=== PATIENT | female | born 1975 | race Caucasian/White ===

== ENCOUNTER 2021-12-13 14:25 | Emergency (ER) | payer OTHER ==
[~2021-12-13] VITALS: Ht 180.3 cm; Wt 90.0 kg
[2021-12-13 14:53] VITALS: BP 142/89
== END 2021-12-13 20:50 | disposition left against medical advice (07) ==
LOC: ER 14:53
DX: Z53.21 Procedure and treatment not carried out due to patient leaving prior to being seen by health care provider (principal)

== ENCOUNTER 2023-03-06 12:21 | Emergency (ER) | payer OTHER ==
[~2023-03-06] VITALS: Ht 165.1 cm; Wt 65.0 kg
[2023-03-06 12:30] VITALS: BP 108/76; PULSE 66; RESP 16; TEMP 98.8; O2SAT 97
[2023-03-06 15:03] LABS: BASOPHILS % 0.4 % (0.0-2.0); EOSINOPHILS % 1.1 % (0.0-5.0); HEMATOCRIT. 39.5 % (36.0-48.0); HEMOGLOBIN. 13.3 g/dL (12.0-16.0); LYMPHOCYTES % 26.9 % (20.0-50.0); MEAN CORPUSCULAR HEMOGLOBIN 31.6 pg (28.0-32.0); MEAN CORPUSCULAR HGB CONC 33.7 g/dL (31.0-37.0); MEAN CORPUSCULAR VOLUME 93.8 fL (81.0-99.0); MEAN PLATELET VOLUME 7.3 fl (7.4-10.4); MONOCYTES % 6.3 % (2.0-8.0); NEUTROPHILS % 65.3 % (40.0-76.0); PLATELET 274 x1000/uL (130-400); RED BLOOD CELL COUNT 4.21 mill/uL (4.2-5.4); WHITE BLOOD COUNT 9.4 x1000/uL (4.5-11.0)
[2023-03-06 15:13] LABS: CHLORIDE 112 mEq/L (98-107); INDEX HEMOLYSI 1 (1-3); INDEX ICTERIC 1 (1-4); INDEX LIPEMIC 1 (1-3); POTASSIUM 3.6 mEq/L (3.5-5.1); SODIUM 140 mEq/L (136-145)
[2023-03-06 15:23] LABS: ALANINE AMINOTRANSFERASE 27 IU/L (13-61); ALBUMIN 3.4 g/dL (3.4-5.0); ASPARTATE AMINOTRANSFERASE 15 IU/L (15-37); BILIRUBIN TOTAL 0.4 mg/dL (0.1-1.0); CALCIUM 8.7 mg/dL (8.5-10.1); CARBON DIOXIDE 25 mEq/L (21-32); CREATININE 0.7 mg/dL (0.6-1.3); GLUCOSE 93 mg/dL (70-105); PROTEIN TOTAL 6.8 g/dL (6.0-8.3); TROPONIN I HIGH SENSITIVITY 15 ng/L (<54); UREA NITROGEN BLOOD 17 mg/dL (7-21)
[2023-03-06 15:30] LABS: HCG SCREEN NEGATIVE
[2023-03-06] MEDS ORDERED: ACETAMINOPHEN 325MG TABLET PO STA (17:57)
[2023-03-06] MEDS ORDERED: METOCLOPRAMIDE HCL 10MG/2ML VIAL IV ONE (18:00)
[2023-03-06] MEDS ORDERED: SODIUM CHLORIDE 0.9% 1,000 ML IV ONE (18:00)
[2023-03-06] MEDS ORDERED: ACETAMINOPHEN 325MG TABLET PO NR (22:45)
[2023-03-06] MEDS ORDERED: METOCLOPRAMIDE HCL 10MG/2ML VIAL IV NR (22:45)
== END 2023-03-07 01:32 | disposition home or self-care (01) ==
LOC: ER 12:40
DX: R53.1 Weakness (principal); I10 Essential (primary) hypertension; Z82.49 Family history of ischemic heart disease and other diseases of the circulatory system; Z90.710 Acquired absence of both cervix and uterus
CPT/HCPCS: 99285; 70496; 96374; 71045; 96361; 80053; 84703; 85025; 84484; 36415; 70498; 93005; 70450; Q9967; J2765; J7030

== ENCOUNTER 2024-04-06 19:20 | Inpatient (IN) | payer SELFPAY ==
[~2024-04-06] VITALS: Ht 180.3 cm; Wt 88.0 kg
[2024-04-06 19:47] VITALS: O2SAT 97
[2024-04-06 20:25] LABS: BASOPHILS % 0.5 % (0.0-2.0); EOSINOPHILS % 0.7 % (0.0-5.0); HEMATOCRIT. 42.6 % (36.0-48.0); HEMOGLOBIN. 14.4 g/dL (12.0-16.0); LYMPHOCYTES % 35.7 % (20.0-50.0); MEAN CORPUSCULAR HEMOGLOBIN 31.9 pg (28.0-32.0); MEAN CORPUSCULAR HGB CONC 33.7 g/dL (31.0-37.0); MEAN CORPUSCULAR VOLUME 94.5 fL (81.0-99.0); MONOCYTES % 7.4 % (2.0-8.0); NEUTROPHILS % 55.7 % (40.0-76.0); PLATELET 296 x1000/uL (130-400); RED CELL DISTRIBUTION WIDTH 13.6 % (11.6-14.6); WHITE BLOOD COUNT 7.5 x1000/uL (4.5-11.0)
[2024-04-06 20:30] LABS: CHLORIDE 107 mEq/L (98-107); POTASSIUM 3.8 mEq/L (3.5-5.1); SODIUM 140 mEq/L (136-145)
[2024-04-06 20:31] LABS: CALCIUM 9.7 mg/dL (8.7-10.4); CARBON DIOXIDE 27 mEq/L (21-32)
[2024-04-06 20:36] LABS: CREATININE 0.9 mg/dL (0.6-1.0); GLUCOSE 94 mg/dL (70-105); UREA NITROGEN BLOOD 20 mg/dL (9-23)
[2024-04-06 20:37] LABS: TROPONIN I HIGH SENSITIVITY 13 ng/L (3.0-34)
[2024-04-06 20:38] LABS: ALANINE AMINOTRANSFERASE 15 IU/L (10-49); ALBUMIN 4.7 g/dL (3.2-4.8); ASPARTATE AMINOTRANSFERASE 19 IU/L (<34); BILIRUBIN DIRECT 0.1 mg/dL (<=3.0); PROTHROMBIN TIME 11.4 sec (9.6-11.0)
[2024-04-06 20:39] LABS: BILIRUBIN TOTAL 0.5 mg/dL (0.1-1.0); PROTEIN TOTAL 7.5 g/dL (6.0-8.3)
[2024-04-06 20:50] LABS: HCG SCREEN NEGATIVE
[2024-04-06] MEDS: MAGNESIUM/ALUMINUM HYDROXIDE/SIMETHICONE 30ML UDC PO STA (21:12)
[2024-04-06] MEDS: ONDANSETRON 4MG ODT PO STA (21:12)
[2024-04-06] MEDS: ACETAMINOPHEN 325MG TABLET PO STA (21:13)
[2024-04-06 21:30] LABS: CLARITY URINE CLEAR (CLEAR); COLOR URINE YELLOW (YELLOW); GLUCOSE URINE NEGATIVE (NEGATIVE); KETONES URINE NEGATIVE (NEGATIVE); LEUKOCYTE ESTERASE URINE NEGATIVE (NEGATIVE); NITRITE URINE NEGATIVE (NEGATIVE); OCCULT BLOOD URINE NEGATIVE (NEGATIVE); PH URINE 5.5 (4.5-8.0); PROTEIN URINE NEGATIVE (NEGATIVE); SPECIFIC GRAVITY URINE 1.021 (1.005-1.030); UROBILINOGEN URINE 0.2 E.U./dL (0.2-1.0)
[2024-04-06 23:02] LABS: TROPONIN I HIGH SENSITIVITY 13 ng/L (3.0-34)
[2024-04-06] MEDS ORDERED: ACETAMINOPHEN 325MG TABLET PO PRN (23:30)
[2024-04-06] MEDS ORDERED: IPRATROPIUM/ALBUTEROL 0.5-3(2.5)MG/3ML NEB HHN PRN (23:30)
[2024-04-06] MEDS ORDERED: MAGNESIUM/ALUMINUM HYDROXIDE/SIMETHICONE 30ML UDC PO PRN (23:30)
[2024-04-06] MEDS ORDERED: DOCUSATE SODIUM 100MG CAPSULE PO PRN (23:30)
[2024-04-06] MEDS ORDERED: CLONIDINE 0.1MG TABLET PO PRN (23:30)
[2024-04-06] MEDS ORDERED: GUAIFENESIN 200MG/10ML SUGAR FREE UDC PO PRN (23:30)
[2024-04-07] MEDS ORDERED: IOHEXOL-300 100 ML BOTTLE ONE (00:52)
[2024-04-07 01:05] LABS: *AMPHETAMINES SCREEN URINE NEGATIVE (NEGATIVE); *BARBITURATES SCREEN URINE NEGATIVE (NEGATIVE); *BENZODIAZEPINES SCREEN URINE NEGATIVE (NEGATIVE); *COCAINE SCREEN URINE NEGATIVE (NEGATIVE); CANNABINOID URINE SCREEN NEGATIVE (NEGATIVE); ECSTASY MDMA SCREEN URINE NEGATIVE (NEGATIVE); METHADONE URINE SCREEN NEGATIVE (NEGATIVE); OPIATES URINE SCREEN NEGATIVE (NEGATIVE); PHENCYCLIDINE URINE SCREEN NEGATIVE (NEGATIVE)
[2024-04-07] MEDS: SODIUM CHLORIDE 0.9% 1,000 ML IV SCH (01:33)
[2024-04-07] MEDS: MORPHINE SULFATE 2 MG/ML INJ (NOT FOR IM USE) IV NR (01:39)
[2024-04-07 02:31] VITALS: BP 114/72; PULSE 65; RESP 18; TEMP 36.9184
[2024-04-07 08:00] VITALS: BP 110/76; PULSE 59; RESP 18; TEMP 36.28068; O2SAT 96
[2024-04-07 08:02] LABS: TRIGLYCERIDE 81 mg/dL (0-150)
[2024-04-07 08:03] LABS: LDL CHOLESTEROL 128 mg/dL (5-100)
[2024-04-07 08:04] LABS: CHOLESTEROL 207 mg/dL (<200); HDL CHOLESTEROL 55 mg/dL (>65)
[2024-04-07 08:05] LABS: PHOSPHORUS 3.1 mg/dL (2.5-4.9); T4 FREE 1.26 ng/dL (0.89-1.76)
[2024-04-07] MEDS: PANTOPRAZOLE SODIUM 40 MG/VIAL IV SCH (08:11)
[2024-04-07] MEDS: ACETAMINOPHEN 325MG TABLET PO PRN (08:13)
[2024-04-07 12:00] VITALS: BP 104/71; PULSE 65; RESP 19; TEMP 36.3918; O2SAT 97
[2024-04-07] MEDS ORDERED: IBUPROFEN 600MG TABLET PO PRN (13:05)
[2024-04-07] MEDS: TRAMADOL 50MG TABLET PO PRN (13:54)
[2024-04-07 16:00] VITALS: BP 102/66; PULSE 66; RESP 18; TEMP 36.72516; O2SAT 95
[2024-04-07 17:02] LABS: HEPATITIS B SURFACE ANTIGEN NEGATIVE (Negative)
[2024-04-07 17:22] LABS: HEPATITIS A AB IGM NEGATIVE (Negative)
[2024-04-07 17:23] LABS: HEPATITIS B CORE AB IGM NEGATIVE (Negative); HEPATITIS C AB NON REACTIVE (Neg) (Negative)
[2024-04-07 20:00] VITALS: BP 108/76; PULSE 63; PULSE 69; RESP 18; RESP 19; TEMP 36.72516; O2SAT 98
[2024-04-07] MEDS: ATORVASTATIN CALCIUM 20MG TABLET PO SCH (20:35)
[2024-04-07] MEDS: ONDANSETRON HCL 4MG/2ML INJ IV PRN (21:10)
[2024-04-08] VITALS: BP 119/88; PULSE 68; RESP 18; TEMP 37.05852; O2SAT 97
[2024-04-08 04:00] VITALS: BP 109/85; PULSE 86; RESP 18; TEMP 36.55848; O2SAT 98
[2024-04-08 07:18] LABS: CHLORIDE 109 mEq/L (98-107); POTASSIUM 4.3 mEq/L (3.5-5.1); SODIUM 142 mEq/L (136-145)
[2024-04-08 07:19] LABS: CALCIUM 9.1 mg/dL (8.7-10.4); CARBON DIOXIDE 27 mEq/L (21-32)
[2024-04-08 07:24] LABS: CREATININE 0.9 mg/dL (0.6-1.0); GLUCOSE 77 mg/dL (70-105); UREA NITROGEN BLOOD 9 mg/dL (9-23)
[2024-04-08 07:54] LABS: BASOPHILS % 0.5 % (0.0-2.0); EOSINOPHILS % 1.7 % (0.0-5.0); HEMATOCRIT. 39.7 % (36.0-48.0); HEMOGLOBIN. 13.1 g/dL (12.0-16.0); MEAN CORPUSCULAR HEMOGLOBIN 31.2 pg (28.0-32.0); MEAN CORPUSCULAR HGB CONC 32.9 g/dL (31.0-37.0); MEAN CORPUSCULAR VOLUME 94.9 fL (81.0-99.0); MEAN PLATELET VOLUME 7.1 fl (7.4-10.4); MONOCYTES % 12.4 % (2.0-8.0); NEUTROPHILS % 31.4 % (40.0-76.0); PLATELET 258 x1000/uL (130-400); RED BLOOD CELL COUNT 4.18 mill/uL (4.2-5.4); RED CELL DISTRIBUTION WIDTH 13.1 % (11.6-14.6); WHITE BLOOD COUNT 4.8 x1000/uL (4.5-11.0)
[2024-04-08 08:00] VITALS: BP 108/88; PULSE 69; RESP 18; TEMP 36.6696; O2SAT 98
[2024-04-08] MEDS: BISACODYL 5MG TABLET PO SCH (08:23)
[2024-04-08 12:00] VITALS: BP 98/68; PULSE 77; RESP 18; TEMP 36.6696; O2SAT 97
[2024-04-08 16:00] VITALS: BP 98/86; PULSE 75; RESP 18; TEMP 36.83628; O2SAT 95
[2024-04-08] MEDS: SUCRALFATE 1G TABLET PO SCH (17:32)
[2024-04-08 20:00] VITALS: BP 103/55; PULSE 78; RESP 17; TEMP 36.61404; O2SAT 97
[2024-04-09] VITALS: BP 142/70; PULSE 68; RESP 18; TEMP 35.94732; O2SAT 100
[2024-04-09 04:00] VITALS: BP 95/51; PULSE 64; RESP 17; TEMP 36.50292; O2SAT 100
[2024-04-09 07:47] LABS: PROTHROMBIN TIME 11.6 sec (9.6-11.0)
[2024-04-09 07:56] LABS: CHLORIDE 108 mEq/L (98-107); SODIUM 140 mEq/L (136-145)
[2024-04-09 07:57] LABS: BASOPHILS % 0.4 % (0.0-2.0); CALCIUM 9.1 mg/dL (8.7-10.4); CARBON DIOXIDE 27 mEq/L (21-32); EOSINOPHILS % 0.8 % (0.0-5.0); HEMATOCRIT. 41.4 % (36.0-48.0); HEMOGLOBIN. 13.6 g/dL (12.0-16.0); LYMPHOCYTES % 38.3 % (20.0-50.0); MEAN CORPUSCULAR HEMOGLOBIN 31.2 pg (28.0-32.0); MEAN CORPUSCULAR HGB CONC 32.8 g/dL (31.0-37.0); MEAN PLATELET VOLUME 7.2 fl (7.4-10.4); MONOCYTES % 7.2 % (2.0-8.0); NEUTROPHILS % 53.3 % (40.0-76.0); PLATELET 245 x1000/uL (130-400); RED BLOOD CELL COUNT 4.36 mill/uL (4.2-5.4); RED CELL DISTRIBUTION WIDTH 13.1 % (11.6-14.6); WHITE BLOOD COUNT 6.3 x1000/uL (4.5-11.0)
[2024-04-09 08:00] VITALS: BP 93/55; PULSE 64; RESP 17; TEMP 36.50292; O2SAT 95
[2024-04-09 08:02] LABS: CREATININE 0.8 mg/dL (0.6-1.0); GLUCOSE 83 mg/dL (70-105); UREA NITROGEN BLOOD 7 mg/dL (9-23)
[2024-04-09 12:00] VITALS: BP 100/59; PULSE 73; RESP 18; TEMP 36.50292; O2SAT 99
[2024-04-09] MEDS: SODIUM CHLORIDE 0.45% 500 ML IV ONE (13:30)
[2024-04-09] MEDS ORDERED: PROPOFOL 200MG/20ML VIAL IV ONE (14:06)
[2024-04-09 16:00] VITALS: BP 107/63; PULSE 75; RESP 19; TEMP 36.44736; O2SAT 98
[2024-04-09] MEDS: NYSTATIN 100,000 UNITS/ML 5ML UDC SSW SCH (18:00)
[2024-04-09 20:00] VITALS: BP 113/75; PULSE 78; RESP 18; TEMP 36.22512; O2SAT 78
[2024-04-10] VITALS: BP 100/57; PULSE 60; RESP 17; TEMP 36.33624; O2SAT 98
[2024-04-10] MEDS: DEXT 5%/0.45% NACL 1000ML 1,000 ML IV SCH (00:49)
[2024-04-10 04:00] VITALS: BP 99/59; PULSE 60; RESP 18; TEMP 36.44736; O2SAT 97
[2024-04-10 07:11] LABS: ETHANOL URINE Negative % (Cutoff=0.020)
[2024-04-10 08:00] VITALS: BP 113/75; PULSE 78; RESP 18; TEMP 36.22512; O2SAT 78
[2024-04-10 12:00] VITALS: BP 85/52; PULSE 66; RESP 18; TEMP 36.16956; O2SAT 99
[2024-04-10] MEDS ORDERED: PANT40TA51 PO (12:54)
[2024-04-10] MEDS ORDERED: ATOR20TA PO (12:54)
[2024-04-10] MEDS ORDERED: IBUP-2029 PO (12:54)
[2024-04-10 16:00] VITALS: BP 85/52; PULSE 66; RESP 18; TEMP 36.16956; O2SAT 99
== END 2024-04-10 17:10 | disposition home or self-care (01) | DRG 241 ==
LOC: ER 19:20 → 6WST 23:11 → EDBEDREQTM 23:13 → EDBEDREQ 23:13
PROVIDERS: ADMIT Hospitalist; ATTEND Hospitalist
PROC: 0DB68ZX Excision of Stomach, Via Natural or Artificial Opening Endoscopic, Diagnostic (ICD-10-PCS; principal; 2024-04-09)
PROC: 0DB78ZX Excision of Stomach, Pylorus, Via Natural or Artificial Opening Endoscopic, Diagnostic (ICD-10-PCS; 2024-04-09)
DX: K29.70 Gastritis, unspecified, without bleeding (principal); E78.1 Pure hyperglyceridemia; R19.00 Intra-abdominal and pelvic swelling, mass and lump, unspecified site; R19.5 Other fecal abnormalities; G43.909 Migraine, unspecified, not intractable, without status migrainosus; R13.10 Dysphagia, unspecified; K20.90 Esophagitis, unspecified without bleeding; Z79.899 Other long term (current) drug therapy; Z90.710 Acquired absence of both cervix and uterus; Z87.891 Personal history of nicotine dependence; Z86.19 Personal history of other infectious and parasitic diseases; Z82.3 Family history of stroke; Z83.3 Family history of diabetes mellitus
CPT/HCPCS: 36415; 71045; 74176; 74177; 76705; 76830; 76856; 80048; 80061; 80076; 80305; 80320; 81003; 82270; 82705; 83605; 83735; 84100; 84439; 84443; 84484; 84703; 85025; 86705; 86709; 87015; 87045; 87177; 87209; 87340; 87427; 87449; 88305; 88312; 88313; 89055; 93005; 99285; J2270; J2405; J2470; J2704; Q0162; Q9967